=== PATIENT | female | born 1955 | race Caucasian/White ===

== ENCOUNTER → 2016-12-12 | Outpatient (CLI) | payer OTHER | LOC: FIMAGING 14:41 | PROVIDERS: ATTEND Internal Medicine | DX: G89.29 Other chronic pain (principal); M48.54XA Collapsed vertebra, not elsewhere classified, thoracic region, initial encounter for fracture; M51.24 Other intervertebral disc displacement, thoracic region; M43.16 Spondylolisthesis, lumbar region; M51.26 Other intervertebral disc displacement, lumbar region ==

== ENCOUNTER 2017-03-30 07:05 | Inpatient (IN) | payer OTHER ==
[2017-03-30] MEDS ORDERED: fentaNYL 100 MCG/2 ML INJ IT ONE (07:33)
[2017-03-30] MEDS ORDERED: morphINE PF 5 MG/10 ML INJ IT ONE (07:33)
[2017-03-30] MEDS ORDERED: ceFAZolin 2 GM/SWFI 2 GM/20 ML SYR IVP ONE ×2 (07:33→08:15)
[2017-03-30] MEDS ORDERED: LIDOCAINE 1% 2 ML INJ ID PRN (07:34)
[2017-03-30] MEDS ORDERED: LR 1,000 ML IV ONE (07:34)
--- NOTE | 2017-03-30 09:44 | PDHPUP ---
History & Physical Update H&P update statement: This history and physical update is based on an assessment of the patient which was completed after admission or registration (within 24 hours), but prior to the surgery/procedure. H&P update: H&P reviewed & patient examined, no change in patient's condition since H&P completed
[2017-03-30] MEDS ORDERED: MIDAZOLAM 2 MG/2 ML VIAL IVP ONE (09:54)
[2017-03-30] MEDS ORDERED: BACITRACIN 50,000 UNITS/10 ML SYR IRR ONE (09:55)
[2017-03-30] MEDS ORDERED: BUPIVACAINE 0.25% 30 ML SDV ONE (09:55)
[2017-03-30] MEDS ORDERED: THROMBIN (BOVINE) 5,000 UNIT VIAL TP ONE (09:55)
--- NOTE | 2017-03-30 09:56 | PDANEPAE ---
ANE History of Present Illness lumbar radiculopathy for L1-2 TLIF ANE Past Medical History - Cardiovascular History Hx Hypertension: No Hx Arrhythmias: No Hx Chest Pain: No Hx Coronary Artery / Peripheral Vascular Disease: No Hx CHF / Valvular Disease: No Hx Palpitations: No Cardiovascular History Comment: thorasic outlet syndrome - Pulmonary History Hx COPD: No Hx Asthma/Reactive Airway Disease: No Hx Recent Upper Respiratory Infection: No Hx Oxygen in Use at Home: No Hx Sleep Apnea: No Sleep Apnea Screening Result - Last Documented: Negative - Neurologic History Hx Cerebrovascular Accident: No Hx Seizures: No Hx Dementia: No - Endocrine History Hx Diabetes: No Hypothyroid: Yes Obesity: no - Renal History Hx Renal Disorders: No - Liver History Hx Hepatic Disorders: No - Neurological & Psychiatric Hx Hx Neurological and Psychiatric Disorders: Yes Neurological / Psychiatric History Comment: chronic pain, opioid dependent - Cancer History Hx Cancer: No - Congenital Disorder History Hx Congenital Disorders: No - GI History GERD: no, mild Hx Gastrointestinal Disorders: No - Other Health History Other Health History: Rash on tail bone,sensitive to cold - Chronic Pain History Chronic Pain: Yes (chronic migraines) - Surgical History Prior Surgeries: none ANE Review of Systems Review of Systems: - Exercise capacity METS (RN): 4 METS ANE Patient History - Allergies Allergies/Adverse Reactions: Penicillins Allergy (Verified 03/16/17 09:53) - Home Medications Home medications: home medication list seen and reviewed Home Medications: Ascorbic Acid [Vitamin C 500 mg (*)] 1,000 mg PO DAILY 03/16/17 [Last Taken 04/05] Cholecalciferol Vit D3 [Vitamin D3 (*)] 5,000 units PO DAILY 03/16/17 [Last Taken 03/20/17] Estrogen/Progesteron 1 tab PO DAILY 03/16/17 [Last Taken 03/29/17] Herbals/Supplements -Info Only 1 ea PO DAILY 03/16/17 [Last Taken 03/20/17] Ibuprofen [Motrin (*)] 200 - 600 mg PO DAILY@16 PRN 03/16/17 [Last Taken ] Multivitamins [Multivitamin (*)] 1 each PO DAILY 03/16/17 [Last Taken 03/20/17] Venlafaxine Xr [Effexor Xr] 300 mg PO DAILY 03/16/17 [Last Taken 02/12/18] oxyCODONE IR [Oxycodone Ir (*)] 30 mg PO DAILY 03/16/17 [Last Taken 03/29/17] traZODone [traZODONE 100MG (*)] 150 mg PO HS 03/16/17 [Last Taken 03/29/17] - NPO status NPO Since - Liquids (Date): 03/29/17 NPO Since - Liquids (Time): 23:30 NPO Since - Solids (Date): 03/29/17 NPO Since - Solids (Time): 20:00 - Smoking Hx Smoking Status: Former smoker - Family Anes Hx Family Hx Anesthesia Complications: none ANE Labs/Vital Signs - Vital Signs Blood Pressure: 129/74 Heart Rate: 57 Respiratory Rate: 16 O2 Sat (%): 94 Height: 170.18 cm Weight: 56.699 kg ANE Physical Exam - Airway Neck exam: FROM Mallampati Score: Class 1 Mouth exam: small mouth opening - Pulmonary Pulmonary: no respiratory distress - Cardiovascular Cardiovascular: regular rate and rhythym - ASA Status ASA Status: III ANE Anesthesia Plan Anesthesia Plan: general endotracheal anesthesia
[2017-03-30] MEDS ORDERED: REMIFENTANIL HCL 1 MG VIAL ONE ×2 (10:01→11:55)
[2017-03-30] MEDS ORDERED: fentaNYL 100 MCG/2 ML INJ ONE ×5 (10:01→13:12)
[2017-03-30] MEDS ORDERED: PROPOFOL 200 MG/20 ML VIAL ONE (10:01)
[2017-03-30] MEDS ORDERED: PROPOFOL/EMULSION 500 MG/50 ML BOTTLE IV ONE (10:02)
[2017-03-30] MEDS ORDERED: ROCURONIUM 50 MG/5 ML VIAL ONE (10:09)
[2017-03-30] MEDS ORDERED: LIDOCAINE 2% 5 ML SDV ONE (10:10)
[2017-03-30] MEDS ORDERED: ONDANSETRON 4 MG/2 ML VIAL ONE (10:11)
[2017-03-30] MEDS ORDERED: DEXAMETHASONE 4 MG/ML VIAL ONE (10:11)
[2017-03-30] MEDS ORDERED: CHLORHEXIDINE GLUC HIBICLENS 118 ML BTL TP ONE (10:33)
[2017-03-30] MEDS ORDERED: HYDROmorphONE/DILAUDID 2 MG/ML INJ ONE (10:47)
[2017-03-30] MEDS ORDERED: KETAMINE 200 MG/20 ML VIAL ONE (10:47)
[2017-03-30] MEDS ORDERED: HYDROCODONE/APAP 5/325 TAB PO PRN (12:09)
[2017-03-30] MEDS ORDERED: ACETAMINOPHEN 500 MG TAB PO PRN (12:09)
[2017-03-30] MEDS ORDERED: METOCLOPRAMIDE 10 MG/2 ML VIAL IVP PRN ×2 (12:09→17:20)
[2017-03-30] MEDS ORDERED: NALOXONE HCL 0.4 MG/ML INJ IVP PRN ×3 (12:09→17:20)
[2017-03-30] MEDS ORDERED: ONDANSETRON 4 MG/2 ML VIAL IVP PRN ×2 (12:09→12:31)
[2017-03-30] MEDS ORDERED: OXYCODONE/APAP 5/325 TAB PO PRN (12:09)
[2017-03-30] MEDS ORDERED: LABETALOL HCL 5 MG/ML 20 ML MDV IVP PRN (12:09)
[2017-03-30] MEDS ORDERED: ALBUTEROL 3 ML DEYVIAL IH PRN (12:09)
[2017-03-30] MEDS ORDERED: LR 500 ML IV PRN (12:09)
[2017-03-30] MEDS ORDERED: PROMETHAZINE HCL 25 MG/ML INJ IVP PRN (12:09)
[2017-03-30] MEDS ORDERED: BISACODYL 10 MG SUPP PR PRN (12:31)
[2017-03-30] MEDS ORDERED: LACTULOSE 20 GM/30 ML UDCUP PO PRN (12:31)
[2017-03-30] MEDS ORDERED: MAGNESIUM HYDROXIDE 30 ML UDCUP PO PRN (12:31)
[2017-03-30] MEDS ORDERED: ONDANSETRON DISINTEGRATING 4 MG TAB PO PRN (12:31)
[2017-03-30] MEDS ORDERED: diphenhydrAMINE 25 MG CAP PO PRN ×2 (12:31→17:20)
--- NOTE | 2017-03-30 12:36 | SOAPPROG ---
SOAP Progress Note Assessment/Plan: Assessment: 62 yo F sp L1/2 TLIF Plan: stable to 3N LSO brace when out of bed PT/OT please call with neuro changes 03/30/17 12:35 Subjective: + back pain, no leg pain. Objective: Vital Signs Temp Pulse Resp BP Pulse Ox 37.1 C 57 L 16 129/74 H 94 03/30/17 07:38 03/30/17 09:55 03/30/17 09:55 03/30/17 09:55 03/30/17 09:55 somnolent, PERRL JACKELIN x4 + light touch ICD10 Worksheet Patient Problems: Problems Problem Status Onset Fusion of spine of lumbar region Acute - ICD10 Problem Qualifiers (1) Fusion of spine of lumbar region
[2017-03-30] MEDS ORDERED: NS W/ 20 KCl/L 1,000 ML IV SCH (12:45)
[2017-03-30] MEDS: fentaNYL 100 MCG/2 ML INJ IVP PRN ×4 (12:47→13:31)
[2017-03-30] MEDS ORDERED: HYDROmorphONE/DILAUDID 1 MG/ML INJ ONE ×2 (12:58→14:24)
[2017-03-30] MEDS: HYDROmorphONE/DILAUDID 1 MG/ML INJ IVP PRN ×6 (13:01→15:00)
--- NOTE | 2017-03-30 13:28 | GOP ---
[f rep st] OPERATIVE REPORT DATE OF OPERATION: 03/30/2017 SURGEON: Mode Corbett MD NEUROSURGEON: Mode Corbett MD PACKAGING DESIGN ENGINEER: KLEVER Celeste. ANESTHESIA: General endotracheal. PREOPERATIVE DIAGNOSIS: Severe L1-2 degenerative joint disease with central canal and bilateral neur al foraminal and lateral recess impingement. Intractable low back pain and bilateral lower extremity radiculopathy. Failed conservative care. POSTOPERATIVE DIAGNOSIS: Severe L1-2 degenerative joint disease with central canal and bilateral héctor ral foraminal and lateral recess impingement. Intractable low back pain and bilateral lower extremit y radiculopathy. Failed conservative care. PROCEDURE PERFORMED: Right-sided L1-2 far lateral transpedicular decompression with bilateral latera l recess decompression and central canal decompression. L1-2 posterior nonsegmental (pedicle screw an d axial device) fixation and posterolateral fusion with local autograft, bone morphogenic protein and morselized allograft. L1-2 posterior/transforaminal lumbar interbody fusion with 2 structural PEEK i nterbody spacers, local autograft and bone morphogenic protein. Use of intraoperative microscopy, fl uoroscopy and computer volumetric stereotactic navigation with intraoperative neurophysiologic testin g. Injection of intrathecal narcotic analgesics for postoperative pain control. FINDINGS: ESTIMATED BLOOD LOSS: 50 cc. INDICATIONS: The patient is a 62-year-old woman with intractable low back pain and bilateral lower e xtremity radicular symptoms secondary to severe L1-2 disc space collapse and neural foraminal with la teral recess impingement. She has failed extensive conservative care and presents now for surgical d ecompression and stabilization through a mini open incision. DESCRIPTION OF PROCEDURE: After informed consent was obtained, the patient was taken to the operatin g room and placed in the prone position on the Epifanio table. The thoracolumbosacral areas were prep ped and draped in a sterile fashion. After fluoroscopic localization of the correct levels, the subc utaneous and intramuscular tissues were infiltrated with local anesthesia. A midline linear incision was then created over the L1-2 spinous processes. This was carried down the fascial layer, which wa s then incised using monopolar electrocautery and carried in a subperiosteal plane/processes at that level bilaterally. Intraoperative fluoroscopy was utilized to verify the correct level. Following t his, the dissection was carried out over the facet joints. A right-sided far lateral transpedicular decompression was then performed to complete unroofing of the facet joint and neuro foramen at L1 and L2. The lateral recess was thoroughly decompressed bilaterally along with the central canal. This was all performed under high-power microscopy. Following adequate decompression, the Tudou system was brought in and, using computer volumetric stereotactic navigation, pedicle scre ws were placed on the right at the L1-L2 levels. Each individual screw was tested neurophysiological ly with monopolar electrostimulation and interpretation of the potentials by the surgeon. Biplanar f luoroscopy was also utilized to verify good position of the screws. A vibha was then placed in for dis traction during which time a complete diskectomy was performed with preparation of the endplates and placement of 2 structural PEEK interbody spacers, local autograft bone morphogenic protein and morsel ized allograft for an L1-2 posterior/transforaminal lumbar interbody fusion. The screw and vibha syste m were then placed in a slight amount of compression in order to facilitate bony union and to minimiz e the potential for posterior graft migration. This was reinforced with an axial device in lieu of l eft-sided pedicle screws in order to avoid the potential for neural injury associated with that and t o maximize the bony surface area for the posterolateral fusion on the left side. Following this, the remaining facet joint and lamina on the left side were extensively decorticated, and the residual lo hu autograft along with bone morphogenic protein and morselized allograft was placed out laterally f or posterolateral fusion at the L1-2 level. 2Then, 200 mcg of Duramorph along with 50 mcg of fentany l were injected intrathecally. The subcutaneous and intramuscular tissues were infiltrated with loca l anesthesia. A drain was placed and the wound was closed in a layered fashion using interrupted Mars ryl sutures followed by Steri-Strips on the skin. COMPLICATIONS: None. DISPOSITION: The patient is currently in the process of being repositioned for extubation. /[id number]/MODL
[2017-03-30] MEDS ORDERED: DIAZEPAM 10 MG/2 ML SYR ONE (13:50)
[2017-03-30] MEDS: DIAZEPAM 10 MG/2 ML SYR IVP PRN ×2 (13:51→14:01)
[2017-03-30] MEDS ORDERED: DEXMEDETOMIDINE HCL 400 MCG in NS 100 ML IV SCH (14:30)
--- NOTE | 2017-03-30 15:43 | POSTANESTH ---
Post Anesthetic Evaluation Cardiovascular Status: Normal, Stable Respiratory Status: Normal, Stable Level of Consciousness/Mental Status: Alert and Oriented Pain Control: Inadeq, Add Tx Required Nausea/Vomiting Control: Adequate, Prn Tx Ordered Complications Possibly Related to Anesthesia: None Noted
[2017-03-30] MEDS ORDERED: DIAZEPAM 10 MG/2 ML SYR IVP ONE (16:00)
[2017-03-30] MEDS: POLYETHYLENE GLYCOL 3350 17 GM PKT PO SCH ×2 (16:50→19:52)
[2017-03-30] MEDS ORDERED: morphINE PCA 30 MG/30 ML PCA IV ONE (17:15)
[2017-03-30] MEDS: METHOCARBAMOL 750 MG TAB PO PRN ×2 (17:24→23:40)
[2017-03-30] MEDS: morphINE PCA 30 MG/30 ML PCA IV PRN (17:31)
[2017-03-30] MEDS: ceFAZolin 2 GM/DEXTROSE 100 ML IV SCH (18:08)
[2017-03-30] MEDS: morphINE SR 15 MG TAB PO SCH (19:51)
[2017-03-30] MEDS: SENNOSIDES/DOCUSATE SODIUM TAB PO SCH (19:52)
[2017-03-30] MEDS: traZODone 100 MG TAB PO SCH (19:52)
[2017-03-30] MEDS: FAMOTIDINE 20 MG TAB PO SCH (19:52)
[2017-03-31] MEDS ORDERED: DEXMEDETOMIDINE IN 0.9 % NACL 50 ML IV SCH (00:30)
[2017-03-31] MEDS: ceFAZolin 2 GM/DEXTROSE 100 ML IV SCH (04:28)
[2017-03-31 04:46] LABS: PLATELET COUNT 144 10^3/uL (150-400)
[2017-03-31 05:12] LABS: PLATELET COUNT 149 10^3/uL (150-400)
[2017-03-31] MEDS: METHOCARBAMOL 750 MG TAB PO PRN ×3 (06:01→21:56)
--- NOTE | 2017-03-31 07:14 | SOAPPROG ---
SOAP Progress Note Assessment/Plan: Assessment: 62 yo F POD #1 L1/2 TLIF Plan: stable and doing well overall off precedex transfer to 3N LSO brace when out of bed PT/OT x-rays today scd/mayra/lovenox for dvt prophylaxis high narc tolerance, may need to increase MScontin please call with neuro changes patient seen with Dr Renee webb 03/30/17 12:35 03/31/17 07:12 Subjective: + back pain, no leg pain, no weakness. Objective: Vital Signs Temp Pulse Resp BP Pulse Ox 36.4 C 48 L 20 96/58 L 99 03/30/17 20:00 03/31/17 04:00 03/31/17 04:00 03/31/17 04:00 03/31/17 04:00 Laboratory Results 03/31/17 05:00 03/31/17 05:00 03/30/17 03/31/17 04/01/17 05:59 05:59 05:59 Intake Total 3147.6 Output Total 2470 Balance 677.6 AAOx4, +FC PERRL, EOMI, no facial droop 5/5 + light touch C/D/I ICD10 Worksheet Patient Problems: Problems Problem Status Onset Fusion of spine of lumbar region Acute - ICD10 Problem Qualifiers (1) Fusion of spine of lumbar region
[2017-03-31] MEDS: VENLAFAXINE XR 150 MG CAP PO SCH (08:43)
[2017-03-31] MEDS: POLYETHYLENE GLYCOL 3350 17 GM PKT PO SCH ×3 (08:43→21:59)
[2017-03-31] MEDS: SENNOSIDES/DOCUSATE SODIUM TAB PO SCH ×2 (08:43→21:53)
[2017-03-31] MEDS: FAMOTIDINE 20 MG TAB PO SCH ×2 (08:43→21:54)
[2017-03-31] MEDS: ENOXAPARIN 40 MG/0.4 ML SYR SC SCH (08:44)
[2017-03-31] MEDS: morphINE SR 15 MG TAB PO SCH ×3 (08:44→21:53)
[2017-03-31] MEDS ORDERED: ENOXAPARIN 40 MG/0.4 ML SYR SC SCH (09:00)
[2017-03-31] MEDS ORDERED: oxyCODONE IR 15 MG TAB PO SCH (09:00)
[2017-03-31] MEDS: PROGESTERON PO SCH (11:59)
[2017-03-31] MEDS: ESTROGEN PO SCH (11:59)
[2017-03-31] MEDS: LIDOCAINE 5% 1 EA PATCH TD SCH (14:27)
--- NOTE | 2017-03-31 15:49 | ASMTCMCOM ---
CM Note CM Note Notes: 62 yr old female with severe back and leg pain. Has elected to have L1-2 TLIF. She has a hx of Migraines-narc use, HTN. Therapies to eval for discharge needs. CM to follow. Date Signed: 03/31/2017 03:48 PM Electronically Signed By:Chrissie De Leon LCSW
[2017-03-31] MEDS: ACETAMINOPHEN 500 MG TAB PO PRN (15:50)
[2017-03-31] MEDS: traZODone 100 MG TAB PO SCH (21:54)
[2017-03-31] MEDS: PATCH REMOVAL 1 EA PATCH TD SCH (22:14)
[2017-04-01] MEDS: morphINE PCA 30 MG/30 ML PCA IV PRN (04:42)
[2017-04-01] MEDS: METHOCARBAMOL 750 MG TAB PO PRN (05:38)
--- NOTE | 2017-04-01 08:45 | SOAPPROG ---
SOAP Progress Note Assessment/Plan: Assessment: 62 yo F POD #2 L1/2 TLIF Plan: stable and doing well overall off precedex dc RELEASE OF INFORMATION CLERK today LSO brace when out of bed PT/OT x-rays today scd/mayra/lovenox for dvt prophylaxis high narc tolerance, on MScontin/oxyIR please call with neuro changes patient seen with Dr Renee webb 03/30/17 12:35 03/31/17 07:12 04/01/17 08:43 Subjective: continued back pain, no leg pain, no weakness. Objective: Vital Signs Temp Pulse Resp BP Pulse Ox 36.8 C 80 18 137/86 H 97 04/01/17 08:00 04/01/17 08:00 04/01/17 08:00 04/01/17 08:00 04/01/17 08:00 Laboratory Results 03/31/17 05:00 03/31/17 05:00 03/31/17 04/01/17 04/02/17 05:59 05:59 05:59 Intake Total 3147.6 1700 Output Total 2470 855 Balance 677.6 845 AAOx4, +FC PERRL, EOMI, no facial droop 5/5 + light touch C/D/I ICD10 Worksheet Patient Problems: Problems Problem Status Onset Fusion of spine of lumbar region Acute - ICD10 Problem Qualifiers (1) Fusion of spine of lumbar region
[2017-04-01] MEDS: FAMOTIDINE 20 MG TAB PO SCH ×2 (09:59→21:32)
[2017-04-01] MEDS: VENLAFAXINE XR 150 MG CAP PO SCH (09:59)
[2017-04-01] MEDS: ENOXAPARIN 40 MG/0.4 ML SYR SC SCH (10:00)
[2017-04-01] MEDS: SENNOSIDES/DOCUSATE SODIUM TAB PO SCH ×2 (10:00→21:32)
[2017-04-01] MEDS: morphINE SR 15 MG TAB PO SCH ×3 (10:00→21:31)
[2017-04-01] MEDS: POLYETHYLENE GLYCOL 3350 17 GM PKT PO SCH ×3 (10:00→21:35)
--- NOTE | 2017-04-01 10:45 | ASMTCMCOM ---
CM Note CM Note Notes: Reviewed chart and discussed w/RN. PT/OT recommending home w/outpt rehab follow-up for PT. Met w/pt to discuss; she was having issue w/pain control. She lives at home w/. Most likely dc home w/oupt rehab follow-up when medically ready. CM will follow for any changes/needs. Date Signed: 04/01/2017 10:44 AM Electronically Signed By:Tanisha Schneider RN
[2017-04-01] MEDS: LIDOCAINE 5% 1 EA PATCH TD SCH (11:10)
[2017-04-01] MEDS: PROGESTERON PO SCH (11:11)
[2017-04-01] MEDS: ESTROGEN PO SCH (11:11)
[2017-04-01] MEDS: ACETAMINOPHEN 500 MG TAB PO PRN (17:10)
[2017-04-01] MEDS: traZODone 100 MG TAB PO SCH (21:30)
[2017-04-01] MEDS: PATCH REMOVAL 1 EA PATCH TD SCH (21:34)
[2017-04-02] MEDS: morphINE PCA 30 MG/30 ML PCA IV PRN (05:39)
[2017-04-02] MEDS: ENOXAPARIN 40 MG/0.4 ML SYR SC SCH (08:30)
[2017-04-02] MEDS: SENNOSIDES/DOCUSATE SODIUM TAB PO SCH ×2 (08:30→21:44)
[2017-04-02] MEDS: morphINE SR 15 MG TAB PO SCH ×3 (08:31→21:46)
[2017-04-02] MEDS: VENLAFAXINE XR 150 MG CAP PO SCH (08:31)
[2017-04-02] MEDS: LIDOCAINE 5% 1 EA PATCH TD SCH (08:32)
[2017-04-02] MEDS: FAMOTIDINE 20 MG TAB PO SCH ×2 (08:32→21:46)
[2017-04-02] MEDS: ESTROGEN PO SCH (09:47)
[2017-04-02] MEDS: PROGESTERON PO SCH (09:47)
[2017-04-02] MEDS: POLYETHYLENE GLYCOL 3350 17 GM PKT PO SCH ×3 (09:47→23:11)
[2017-04-02] MEDS: METHOCARBAMOL 750 MG TAB PO PRN ×3 (12:54→21:51)
[2017-04-02] MEDS: ACETAMINOPHEN 500 MG TAB PO PRN (12:56)
[2017-04-02] MEDS: traZODone 100 MG TAB PO SCH (21:45)
[2017-04-02] MEDS: PATCH REMOVAL 1 EA PATCH TD SCH (21:52)
[2017-04-03 00:15] VITALS: RESP 16; TEMP 99
[2017-04-03] MEDS: METHOCARBAMOL 750 MG TAB PO PRN ×2 (03:07→08:56)
[2017-04-03] MEDS: ACETAMINOPHEN 500 MG TAB PO PRN ×2 (06:41→12:36)
[2017-04-03 07:44] VITALS: BP 106/63; PULSE 63; O2SAT 91
--- NOTE | 2017-04-03 08:46 | NEUSURGPN ---
Date of Surgery: 03/30/17 Post Op Day: 4 Assessment/Plan: 62 yo F POD #4 L1/2 TLIF Plan: - neuro stable - pain controlled on current oral regimen - wear brace when out of bed - PT/OT - postop x-rays stable - remove BARBARA drain - SCDs/TEDs/Lovenox for DVT prophylaxis - discharge to home today - discussed with Dr. Duran Subjective: No new overnight issues. No LE pain. Doing well. Objective: Awake. Alert. PERRL. EOMI Following commands Muscle strength full at 5/5 Sensation intact - Physician Discussed Patient with DrHarshad: [facility] Physical Exam - Vitals, I&O, Labs I and O 04/02/17 04/03/17 04/04/17 05:59 05:59 05:59 Intake Total 1600 940 Output Total 1605 20 Balance -5 920 Intake: Oral (ml) 1000 940 IV Intake (ml) 600 Output: Urine (ml) 1550 Bedpan 300 Bedside Commode 1250 BARBARA Drain Output (ml) 55 20 #1 Back 55 20 Other: Intake Quantity Yes Sufficient Number of Voids Bedpan 1 Bedside Commode 1 Vital Signs Temp Pulse Resp BP Pulse Ox 37.2 C 63 16 106/63 91 L 04/03/17 07:43 04/03/17 07:43 04/03/17 07:43 04/03/17 07:43 04/03/17 07:43 Laboratory Results 03/31/17 05:00 03/31/17 05:00 ICD10 Worksheet Patient Problems: Problems Problem Status Onset Fusion of spine of lumbar region Acute
[2017-04-03] MEDS: morphINE SR 15 MG TAB PO SCH (08:55)
[2017-04-03] MEDS: VENLAFAXINE XR 150 MG CAP PO SCH (08:55)
[2017-04-03] MEDS: SENNOSIDES/DOCUSATE SODIUM TAB PO SCH (08:56)
[2017-04-03] MEDS: FAMOTIDINE 20 MG TAB PO SCH (08:56)
[2017-04-03] MEDS: ENOXAPARIN 40 MG/0.4 ML SYR SC SCH (08:57)
[2017-04-03] MEDS ORDERED: LIDOCAINE 4%/MENTHOL 1% PATCH TD SCH (09:00)
[2017-04-03] MEDS: POLYETHYLENE GLYCOL 3350 17 GM PKT PO SCH (10:55)
[2017-04-03] MEDS: PROGESTERON PO SCH (10:55)
[2017-04-03] MEDS: ESTROGEN PO SCH (10:55)
--- NOTE | 2017-04-03 11:09 | ASMTCMCOM ---
CM Note CM Note Notes: Pt medically stable for d/c, no CM d/c needs identified. Date Signed: 04/03/2017 11:08 AM Electronically Signed By:ANIVAL Groves
== END 2017-04-03 12:40 | disposition home or self-care (01) | DRG 460 ==
LOC: F3N 07:05 → OBSVTOIN 12:34 → F2N 15:21 → F3N 03-31 11:12
PROVIDERS: ADMIT Neurological Surgery; ATTEND Neurological Surgery
DX: M51.36 Other intervertebral disc degeneration, lumbar region (principal); F11.20 Opioid dependence, uncomplicated; M43.16 Spondylolisthesis, lumbar region; M54.16 Radiculopathy, lumbar region; G89.29 Other chronic pain; G43.909 Migraine, unspecified, not intractable, without status migrainosus
CPT/HCPCS: 97116-GP; 97161-GP; 97165-GO; 97530-GO; 97530-GP; 97535-GO; C1713; C1762; G8987-GO-CJ; G8988-GO-CI; J0171; J0690; J1100; J1170; J1650; J2250; J2270; J2274; J2405; J2704; J3010; J3360

== ENCOUNTER → 2018-04-02 | Outpatient (CLI) | payer OTHER | LOC: FIMAGING 15:06 | PROVIDERS: ATTEND Family Medicine | DX: J20.9 Acute bronchitis, unspecified (principal) ==

== ENCOUNTER → 2018-08-11 | Outpatient (CLI) | payer OTHER | LOC: FIMAGING 13:49 ==